=== PATIENT | male | born 1975 | race Caucasian/White ===

== ENCOUNTER 2017-01-18 01:59 | Emergency (ER) | payer BC, OTHER ==
[2017-01-18 02:26] VITALS: BP 160/92; PULSE 112; TEMP 99.6; BMI 27.9
--- NOTE | 2017-01-18 02:35 | PDOC ---
History of Present Illness - General Chief Complaint: Pain Stated Complaint: PAIN Time Seen by Provider: 01/18/17 02:24 Past History - Past Medical History Allergies/Adverse Reactions: Allergies Allergy/AdvReac Type Severity Reaction Status Date / Time codeine Allergy Verified 01/18/17 02:20 Penicillins Allergy Rash Verified 01/18/17 02:19 Home Medications: Ambulatory Orders NK [No Known Home Medication] 02/11/14 Hypercholesterolemia: Yes - Surgical History Abdominal Surgery: Yes - Immunization History Td Vaccination: Yes Immunization Up to Date: (uncertain to hEP B) - Psycho/Social/Smoking Cessation Hx Anxiety: No Suicidal Ideation: No Smoking Status: No Smoking History: Never smoked Have you smoked in the past 12 months: No Number of Cigarettes Smoked Daily: 0 Cigars Per Day: 0 Information on smoking cessation initiated: No Hx Alcohol Use: No Drug/Substance Use Hx: No Substance Use Type: None *Physical Exam - Vital Signs Last Vital Signs Temp Pulse Resp BP Pulse Ox 99.6 F 112 H 20 160/92 100 01/18/17 02:20 01/18/17 02:20 01/18/17 02:20 01/18/17 02:20 01/18/17 02:20
[2017-01-18] MEDS ORDERED: morphine CARPU-JECT 2 MG/1 ML DISP.SYRIN IM ONE (02:45)
[2017-01-18] MEDS ORDERED: morphine CARPU-JECT 2 MG/1 ML DISP.SYRIN ONE (02:56)
[2017-01-18] MEDS ORDERED: KETOROLAC TROMETHAMINE 60 MG/2 ML VIAL ONE (03:36)
[2017-01-18] MEDS ORDERED: KETOROLAC TROMETHAMINE 60 MG/2 ML VIAL IM ONE (04:08)
--- NOTE | 2017-01-18 05:26 | PDOC ---
History of Present Illness - General Chief Complaint: Pain Stated Complaint: PAIN Time Seen by Provider: 01/18/17 02:24 History Source: Patient Exam Limitations: No Limitations - History of Present Illness Initial Comments: 01/18/17 05:23 32-year-old male presents to the emergency department with his complaining of discomfort to the tonsils. Patient states he had bilateral tonsillectomy and removal of a polyp from the voice box earlier this morning. Patient was discharged on Tylenol with Codeine 120/12.5 mg. Patient states Tylenol with codeine did not really alleviate the pain but he denies fever, chills, nausea/ vomiting, tongue swelling, neck swelling, difficulty speaking. Timing/Duration: 4-6 hours Severity: mild Associated Symptoms: reports: denies symptoms Past History - Past Medical History Allergies/Adverse Reactions: Allergies Allergy/AdvReac Type Severity Reaction Status Date / Time codeine Allergy Verified 01/18/17 02:20 Penicillins Allergy Rash Verified 01/18/17 02:19 Home Medications: Ambulatory Orders NK [No Known Home Medication] 02/11/14 Hypercholesterolemia: Yes - Surgical History Abdominal Surgery: Yes - Immunization History Td Vaccination: Yes Immunization Up to Date: (uncertain to hEP B) - Psycho/Social/Smoking Cessation Hx Anxiety: No Suicidal Ideation: No Smoking Status: No Smoking History: Never smoked Have you smoked in the past 12 months: No Number of Cigarettes Smoked Daily: 0 Cigars Per Day: 0 Information on smoking cessation initiated: No Hx Alcohol Use: No Drug/Substance Use Hx: No Substance Use Type: None Review of Systems - Review of Systems Able to Perform ROS?: Yes Comments:: 01/18/17 05:21 CONSTITUTIONAL: Absent: fever, chills, diaphoresis, generalized weakness, malaise, loss of appetite HEENT: Absent: rhinorrhea, nasal congestion, throat pain, throat swelling, difficulty swallowing, mouth swelling, ear pain, eye pain, visual Changes CARDIOVASCULAR: Absent: chest pain, loss of consciousness, palpitations, irregular heart rate, peripheral edema RESPIRATORY: Absent: cough, shortness of breath, dyspnea with exertion, orthopnea, wheezing, stridor, hemoptysis GASTROINTESTINAL: Absent: abdominal pain, abdominal distension, nausea, vomiting, diarrhea, constipation, melena, hematochezia GENITOURINARY: Absent: dysuria, frequency, urgency, hesitancy, hematuria, flank pain, genital pain Is the patient limited Sammarinese proficient: No *Physical Exam - Vital Signs Last Vital Signs Temp Pulse Resp BP Pulse Ox 99.6 F 112 H 20 160/92 100 01/18/17 02:20 01/18/17 02:20 01/18/17 02:20 01/18/17 02:20 01/18/17 02:20 - Physical Exam Comments: 01/18/17 05:22 GENERAL: Well developed, well nourished. Awake and alert. No acute distress. HEENT: Tonsillectomy incision bilaterally noted without drainage/redness or swelling. Tongue: Not enlarged/negative pain on palp Normocephalic, atraumatic. PERRLA, EOMI. No conjunctival pallor. Sclera are non- icteric. Moist mucous membranes. Oropharynx is clear. NECK: Supple. Full ROM. No JVD. Carotid pulses 2+ and symmetric, without bruits. No thyromegaly. No lymphadenopathy. CARDIOVASCULAR: Regular rate and rhythm. No murmurs, rubs, or gallops. Distal pulses are 2+ and symmetric. PULMONARY: No evidence of respiratory distress. Lungs clear to auscultation bilaterally. No wheezing, rales or rhonchi. ED Treatment Course - Medications Given in the ED: ED Medications Discontinued Medications Generic Name Dose Route Start Last Admin Trade Name Anksuhq PRN Reason Stop Dose Admin Ketorolac Tromethamine 60 mg 01/18/17 04:08 01/18/17 04:10 Toradol Injection - IM 01/18/17 04:09 60 mg ONCE ONE Administration Morphine Sulfate 2 mg 01/18/17 02:45 01/18/17 04:57 Morphine Injection - IM 01/18/17 02:46 2 mg ONCE ONE Administration *DC/Admit/Observation/Transfer Diagnosis at time of Disposition: Status post tonsillectomy - Discharge Dispostion Disposition: HOME Condition at time of disposition: Stable - Patient Instructions Additional Instructions: Follow-up with your ENT surgeon. UA given Toradol 60 mg/intramuscular injection which subsided most of your discomfort. Return back to the emergency department for severe/persistent or worsening symptoms.
== END 2017-01-18 05:44 | disposition home or self-care (01) ==
LOC: JER 01:59
PROC: 3E0233Z Introduction of Anti-inflammatory into Muscle, Percutaneous Approach (ICD-10-PCS; principal; 2017-01-18)
PROC: 3E023NZ Introduction of Analgesics, Hypnotics, Sedatives into Muscle, Percutaneous Approach (ICD-10-PCS; 2017-01-18)
DX: G89.18 Other acute postprocedural pain (principal)
CPT/HCPCS: 99281-25; 99282-25

== ENCOUNTER 2017-04-09 09:43 | Emergency (ER) | payer OTHER ==
[2017-04-09 09:53] VITALS: BP 152/86; PULSE 102; TEMP 98.7; BMI 27.3
[2017-04-09] MEDS ORDERED: LORazepam 0.5 MG TABLET PO ONE (10:32)
[2017-04-09] MEDS ORDERED: LORazepam 0.5 MG TABLET ONE (10:36)
--- NOTE | 2017-04-09 10:37 | PDOC ---
History of Present Illness - General Chief Complaint: Injury Stated Complaint: LT ARM PAIN/ BITE Time Seen by Provider: 04/09/17 10:21 Past History - Past Medical History Allergies/Adverse Reactions: Allergies Allergy/AdvReac Type Severity Reaction Status Date / Time codeine Allergy Verified 04/09/17 09:54 Penicillins Allergy Rash Verified 04/09/17 09:54 Hypercholesterolemia: Yes - Surgical History Abdominal Surgery: Yes - Immunization History Td Vaccination: Yes Immunization Up to Date: (uncertain to hEP B) - Psycho/Social/Smoking Cessation Hx Anxiety: No Suicidal Ideation: No Smoking Status: No Smoking History: Never smoked Have you smoked in the past 12 months: No Number of Cigarettes Smoked Daily: 0 Cigars Per Day: 0 Hx Alcohol Use: Yes (SOCIAL) Drug/Substance Use Hx: No Substance Use Type: None *Physical Exam - Vital Signs Last Vital Signs Temp Pulse Resp BP Pulse Ox 98.7 F 102 H 20 152/86 98 04/09/17 09:50 04/09/17 09:50 04/09/17 09:50 04/09/17 09:50 04/09/17 09:50 *DC/Admit/Observation/Transfer Diagnosis at time of Disposition: Anxiety Human bite of finger Qualifiers: Encounter type: initial encounter Qualified Code(s): S61.259A - Open bite of unspecified finger without damage to nail, initial encounter; W50.3XXA - Accidental bite by another person, initial encounter Contusion of multiple sites of hand and wrist Qualifiers: Encounter type: initial encounter Laterality: unspecified laterality Qualified Code(s): S60.229A - Contusion of unspecified hand, initial encounter; S60.219A - Contusion of unspecified wrist, initial encounter - Discharge Dispostion Disposition: HOME Condition at time of disposition: Stable Admit: No - Patient Instructions Additional Instructions: NO DRIVING AFTER ATIVAN GIVEN NOW; PLEASE WOUND CHECK IN 2 DAYS; REST AT HOME; SEE PCP ABOUT ELEVATED B/P; START CLINDAMYCIN - Post Discharge Activity Work/School Note: Back to Work
== END 2017-04-09 11:05 | disposition home or self-care (01) ==
LOC: JERFT 09:43
DX: S60.229A Contusion of unspecified hand, initial encounter (principal); S61.259A Open bite of unspecified finger without damage to nail, initial encounter; W50.3XXA Accidental bite by another person, initial encounter; Y35.491A Legal intervention involving other sharp objects, law enforcement official injured, initial encounter; Y93.89 Activity, other specified; Y92.89 Other specified places as the place of occurrence of the external cause; Y99.0 Civilian activity done for income or pay; F41.9 Anxiety disorder, unspecified
CPT/HCPCS: 99281-25

== ENCOUNTER 2019-10-12 16:21 | Emergency (ER) | payer OTHER ==
[2019-10-12 16:26] VITALS: BP 158/99; PULSE 98; TEMP 98; BMI 30.4
[2019-10-12] MEDS ORDERED: IBUPROFEN 600 MG TABLET (FP) PO ONE (17:04)
--- NOTE | 2019-10-12 18:03 | PDOC ---
History of Present Illness - General Chief Complaint: Pain Stated Complaint: YPD-KNEE PAIN Time Seen by Provider: 10/12/19 16:55 Past History - Past Medical History Allergies/Adverse Reactions: Allergies Allergy/AdvReac Type Severity Reaction Status Date / Time Penicillins Allergy Rash Verified 10/12/19 16:26 Home Medications: Ambulatory Orders Clindamycin [Cleocin -] 300 mg PO TID #21 capsule 04/10/17 COPD: No Hypercholesterolemia: Yes - Surgical History Abdominal Surgery: Yes - Immunization History Td Vaccination: Yes Immunization Up to Date: (uncertain to hEP B) - Psycho Social/Smoking Cessation Hx Smoking Status: No Smoking History: Never smoked Have you smoked in the past 12 months: No Number of Cigarettes Smoked Daily: 0 Cigars Per Day: 0 Hx Alcohol Use: Yes (SOCIAL) Drug/Substance Use Hx: No Substance Use Type: None *Physical Exam - Vital Signs Last Vital Signs Temp Pulse Resp BP Pulse Ox 98 F 98 H 18 158/99 99 10/12/19 16:24 10/12/19 16:24 10/12/19 16:24 10/12/19 16:24 10/12/19 16:24 ED Treatment Course - RADIOLOGY Radiology Studies Ordered: Category Date Time Status KNEE 3 POS-RIGHT [RAD] Stat Radiology 10/12/19 17:04 Taken - Medications Given in the ED: ED Medications Discontinued Medications Generic Name Dose Route Start Last Admin Trade Name Corky PRN Reason Stop Dose Admin Ibuprofen 600 mg 10/12/19 17:04 10/12/19 17:07 Motrin - PO 10/12/19 17:05 600 mg ONCE ONE Administration Discharge - Discharge Information Problems reviewed: Yes Clinical Impression/Diagnosis: Knee pain Qualifiers: Chronicity: unspecified Laterality: bilateral Qualified Code(s): M25.561 - Pain in right knee; M25.562 - Pain in left knee Condition: Stable Disposition: HOME - Admission No - Follow up/Referral Referrals: Leo Garibay MD [Primary Care Provider] - Chava Pryor MD [Staff Physician] - - Patient Discharge Instructions Patient Printed Discharge Instructions: DI for Knee Pain Additional Instructions: Your x-rays were negative for broken bones today. You most likely sprained your right knee. Please follow-up with orthopedics this week for further management of your symptoms. You may take Motrin 600 mg every 6 hours as needed for pain. Return to the ER for any new or worsening symptoms. - Post Discharge Activity Work/Back to School Note: Back to Work
== END 2019-10-12 18:23 | disposition home or self-care (01) ==
LOC: JERFT 16:21
DX: S89.81XA Other specified injuries of right lower leg, initial encounter (principal); M25.561 Pain in right knee; W18.39XA Other fall on same level, initial encounter; Y35.811A Legal intervention involving manhandling, law enforcement official injured, initial encounter; Y93.89 Activity, other specified; Y92.89 Other specified places as the place of occurrence of the external cause; Y99.0 Civilian activity done for income or pay
CPT/HCPCS: 73562-TC-RT-FY; 99281-25